=== PATIENT | female | born 1990 | race Caucasian/White ===

== ENCOUNTER 2018-09-20 02:20 | Emergency (ER) | payer OTHER ==
[2018-09-20 02:34] VITALS: RESP 20
--- NOTE | 2018-09-20 03:13 | C.PDOC ---
History Of Present Illness 28 year old female presents to the ED c/o fever and flu like symptoms for a week. Patient reports she has been taking Tylenol. Patient reports coworkers at her job all have similar symptoms. Patient also c/o headache and 3 episodes of emesis today. Patient denies visual changes, nausea, vomit, abdominal pain, SOB, rash, weakness, numbness. Time Seen by Provider: 09/20/18 03:13 Chief Complaint (Nursing): Abdominal Pain History Per: Patient History/Exam Limitations: no limitations Onset/Duration Of Symptoms: Days Current Symptoms Are (Timing): Still Present Location Of Pain/Discomfort: Diffuse Quality Of Discomfort: "Pain" Associated Symptoms: Fever, Nausea, Vomiting. denies: Diarrhea, Urinary Sympt oms Recent travel outside of the [place]: No Additional History Per: Patient Abnormal Vaginal Bleeding: No Past Medical History Reviewed: Historical Data, Nursing Documentation, Vital Signs Vital Signs: Last Vital Signs Temp 97.4 F L 09/20/18 02:31 Pulse 96 H 09/20/18 02:31 Resp 20 09/20/18 02:31 BP 138/85 09/20/18 02:31 Pulse Ox 96 09/20/18 02:31 - Medical History PMH: Back Problems, HTN Surgical History: No Surg Hx Family History: States: Unknown Family Hx - Social History Hx Tobacco Use: No Hx Alcohol Use: No Hx Substance Use: No - Immunization History Hx Tetanus Toxoid Vaccination: No Hx Influenza Vaccination: No Hx Pneumococcal Vaccination: No Review Of Systems Constitutional: Positive for: Fever. Negative for: Chills ENT: Positive for: Nose Discharge, Nose Congestion Cardiovascular: Negative for: Chest Pain Respiratory: Positive for: Cough. Negative for: Shortness of Breath, Sputum, Wheezing Gastrointestinal: Positive for: Nausea, Vomiting, Abdominal Pain. Negative for: Diarrhea Genitourinary: Negative for: Dysuria Skin: Negative for: Rash Neurological: Positive for: Headache. Negative for: Weakness, Numbness, Dizziness Physical Exam - Physical Exam Appears: Non-toxic, No Acute Distress, Other (morbidly obese) Skin: Warm, Dry Head: Normacephalic Eye(s): bilateral: Normal Inspection, PERRL, EOMI Oral Mucosa: Moist Neck: Supple Chest: Symmetrical Cardiovascular: Rhythm Regular Respiratory: No Rales, No Rhonchi, No Wheezing Gastrointestinal/Abdominal: Soft, No Tenderness, No Guarding, No Rebound, Other (morbildy obese) Extremity: Bilateral: Atraumatic, Normal Color And Temperature, Normal ROM Neurological/Psych: Oriented x3, Normal Speech, Normal Cognition, Other (non focal) Gait: Steady ED Course And Treatment - Laboratory Results Result Diagrams: 09/20/18 03:50 09/20/18 03:50 O2 Sat by Pulse Oximetry: 96 (ON RA) Pulse Ox Interpretation: Normal Progress Note: Plan: - Labs. - IV fluids. - Tylenol 975 mg PO. - Zofran 4 mg IVP. - Influenza A B. - UA Reevaluation Time: 05:51 Reassessment Condition: Improved Medical Decision Making Medical Decision Making: Upon provider reevaluation patient is feeling better, is medically stable, and requires no further treatment in the ED at this time. Patient will be discharged home . Counseling was provided and all questions were answered regarding diagnosis and need for follow up with dr shepard. There is agreement to discharge plan. Return if symptoms persist or worsen. Disposition Counseled Patient/Family Regarding: Studies Performed, Diagnosis, Need For Follo wup - Disposition Referrals: Shawn Shepard MD [Staff Provider] - Disposition: HOME/ ROUTINE Disposition Time: 03:13 Condition: FAIR Additional Instructions: Please return if symptoms recur Instructions: Headache, Adult (DC), Viral Syndrome (DC) Forms: [facility] (Danish), Work Excuse - Clinical Impression Clinical Impression: Headache, Viral syndrome - Scribe Statement The provider has reviewed the documentation as recorded by the Scribe Ariel Leone All medical record entries made by the Scribe were at my direction and personally dictated by me. I have reviewed the chart and agree that the record accurately reflects my personal performance of the history, physical exam, medical decision making, and the department course for this patient. I have also personally directed, reviewed, and agree with the discharge instructions and disposition.
[2018-09-20] MEDS ORDERED: Sodium Chloride 0.9% 1,000 ML IV ONE (03:22)
[2018-09-20] MEDS ORDERED: Sodium Chloride 0.9% 1,000 ML ONE (03:52)
[2018-09-20 03:53] LABS: BASO % 0.6 % (0.0-2.0); EOS % 0.1 % (0.0-4.0); HEMOGLOBIN 13.5 g/dL (11.0-16.0); LYMPH # 1.1 K/uL (1.0-4.3); LYMPH % 14.2 % (20.0-40.0); MEAN CELL VOLUME 81.1 fL (81.0-99.0); MEAN CORPUSCULAR HEMOGLOBIN 26.3 pg (27.0-31.0); MEAN CORPUSCULAR HGB CONC 32.4 g/dL (33.0-37.0); MEAN PLATELET VOLUME 8.5 fL (7.2-11.7); MONO # 0.3 K/uL (0.0-0.8); MONO % 4.1 % (0.0-10.0); NRBC % 0.1 % (0.0-2.0); RBC 5.13 Mil/uL (3.80-5.20); RED CELL DISTRIBUTION WIDTH 13.9 % (11.5-14.5); WHITE BLOOD COUNT 7.5 K/uL (4.8-10.8)
[2018-09-20 04:01] LABS: SQUAMOUS EPITHIAL 12 /hpf (0-5); URINE AMORPHOUS SEDIMENT MODERATE /ul (<OCC); URINE BACTERIA OCC (<OCC); URINE BILIRUBIN NEGATIVE (NEGATIVE); URINE BLOOD NEGATIVE (NEGATIVE); URINE CLARITY Hazy (Clear); URINE COLOR Red (YELLOW); URINE GLUCOSE (UA) NORMAL (Normal); URINE LEUKOCYTE ESTERASE NEG Leu/uL (Negative); URINE PROTEIN NEGATIVE (NEGATIVE); URINE UROBILINOGEN NORMAL mg/dL (0.2-1.0)
[2018-09-20 04:04] LABS: ALB/GLOB RATIO 1.4 (1.0-2.1); ALBUMIN 4.2 g/dL (3.5-5.0); ALT/SGPT 63 U/L (9-52); AST/SGOT 40 U/L (14-36); BLOOD UREA NITROGEN 13 mg/dL (7-17); CALCIUM 8.9 mg/dl (8.6-10.4); GFR NON-AFRICAN AMERICAN > 60; LIPASE 55 U/L (23-300)
[2018-09-20 05:26] LABS: HCG,QUALITATIVE URINE NEGATIVE (NEGATIVE)
[2018-09-20 06:07] VITALS: BP 143/88; PULSE 82; TEMP 97.8; O2SAT 97
== END 2018-09-20 06:07 | disposition home or self-care (01) ==
LOC: C.ER 02:20
DX: B34.9 Viral infection, unspecified (principal); R51 Headache; I10 Essential (primary) hypertension
CPT/HCPCS: 80053; 81001; 83690; 84703; 85025; 87804; 96361; 96374; 96375; 99284; J1885; J2405; J7030